=== PATIENT | female | born 1980 | race Two or more races ===

== ENCOUNTER 2017-12-28 21:58 | Emergency (ER) | payer BC ==
[~2017-12-28] VITALS: Ht 160 cm; Wt 87.0 kg
[2017-12-28 22:52] VITALS: BP 154/99
== END 2017-12-28 23:27 | disposition left against medical advice (07) ==
LOC: ER 21:58
DX: Z53.21 Procedure and treatment not carried out due to patient leaving prior to being seen by health care provider (principal); E11.9 Type 2 diabetes mellitus without complications; I10 Essential (primary) hypertension; Z88.8 Allergy status to other drugs, medicaments and biological substances
CPT/HCPCS: 93005